=== PATIENT | female | born 1945 | race Caucasian/White ===

== ENCOUNTER 2019-11-09 09:06 | Inpatient (IN) ==
[2019-11-09] MEDS ORDERED: ONDANSETRON 4 MG/2 ML VIAL IV STA (09:22)
[2019-11-09] MEDS ORDERED: METOCLOPRAMIDE 10 MG/2 ML VIAL IV STA (09:22)
[2019-11-09] MEDS ORDERED: DICYCLOMINE 20 MG/2 ML AMP IM ONE (09:22)
[2019-11-09] MEDS ORDERED: SODIUM CHLORIDE 0.9% 1,000 ML IV STA (09:22)
[2019-11-09] MEDS ORDERED: metroNIDAZOLE INJ 500 MG in PREMIX 1 EACH IV STA (09:22)
[2019-11-09] MEDS ORDERED: PANTOPRAZOLE 40 MG VIAL IV STA (09:22)
[2019-11-09 09:47] LABS: Basophils % 0.5 % (0.0-0.8); Eosinophils # 0.1 10*3/uL (0.0-0.87); Eosinophils % 0.7 % (0.00-10.9); Hematocrit 48.4 VOL% (35.7-47.0); Hemoglobin 15.5 GM/DL (12.0-16.0); Immature Granulocytes % 0.3 %; Immature Granulocytes Absolute 0.03 #; Lymphocytes # 1.7 10*3/uL (1.4-4.0); Lymphocytes % 19.3 % (21.3-54.2); Monocytes % 4.2 % (1.7-12.7); Platelet Count 173 T/CUMM (130-400); Red Blood Count 5.26 MC/CUMM (3.8-5.5); Red Cell Distribution Width 12.9 % (9.3-17.3); White Blood Count 8.8 T/CUMM (4-12)
[2019-11-09 10:23] LABS: Alanine Aminotransferase 34 U/L (13-56); Albumin 4.3 G/DL (3.4-5.0); Alkaline Phosphatase 122 U/L (45-117); Amylase 39 U/L (25-115); Aspartate Amino Transferase 16 U/L (0-37); Blood Urea Nitrogen 8 MG/DL (7-18); Calcium 9.1 MG/DL (8.5-10.1); Estimated Glom Filtration Rate 60 ML/MIN; Glucose 281 MG/DL (74-106); Total Protein 7.9 G/DL (6.4-8.3); Troponin I < 0.015 NG/ML (0.00-0.045)
[2019-11-09 10:55] LABS: Apearance,Urine Slightly Hazy (Clear); Bacteria,Urine Many /HPF (Few); Bilirubin,Urine Negative (Negative); Blood, Urine Moderate mg/dL (Negative); Glucose,Urine (UA) >=500 mg/dL (Negative); Hyaline Casts,Urine 4 /LPF (0-3); Ketones,Urine Negative (Negative); Mucus,Urine Occasional /LPF (Occasional); Nitrite,Urine Negative (Negative); Protein,Urine Negative; RBC,Urine 8 /HPF (0-4); Squamous Epithelial Cell,Urine Occasional /HPF (0-10); Urine Color Yellow (Yellow); Urine Urobilinogen < 2.0 EU/DL (0.2-1.0); WBC,Urine 19 /HPF (0-6)
[2019-11-09] MEDS ORDERED: LEVOFLOXACIN INJ 750 MG in PREMIX 1 EACH IV STA (11:18)
[2019-11-09] MEDS ORDERED: ALBUTEROL 2.5 MG/3 ML NEB RESP TX PRN (12:19)
[2019-11-09] MEDS ORDERED: DEXTROSE 10% 250 ML BAG IV PRN (12:21)
[2019-11-09] MEDS ORDERED: DOCUSATE SODIUM 100 MG CAPSULE PO PRN (12:21)
[2019-11-09] MEDS ORDERED: GLUCAGON 1 MG VIAL IM PRN (12:21)
[2019-11-09] MEDS: PANTOPRAZOLE 40 MG TABLET PO SCH (14:36)
[2019-11-09] MEDS: ONDANSETRON 4 MG/2 ML VIAL IV PRN (14:36)
[2019-11-09] MEDS: INSULIN REGULAR 100 UNIT/ML SUBCUT SCH ×2 (17:09→20:56)
[2019-11-09] MEDS: metroNIDAZOLE INJ 500 MG in PREMIX 1 EACH IV SCH (17:41)
[2019-11-09] MEDS: SIMVASTATIN 40 MG TABLET PO SCH (20:54)
[2019-11-09] MEDS: ZALEPLON 5 MG CAPSULE PO PRN (20:54)
[2019-11-09] MEDS: METOPROLOL SUCCINATE XL 50 MG TABLET PO SCH (20:54)
[2019-11-09] MEDS: DICYCLOMINE 10 MG CAPSULE PO SCH (21:00)
[2019-11-10] MEDS: metroNIDAZOLE INJ 500 MG in PREMIX 1 EACH IV SCH ×3 (01:03→16:41)
[2019-11-10] MEDS: ONDANSETRON 4 MG/2 ML VIAL IV PRN (01:08)
[2019-11-10 04:50] LABS: Basophils # 0.1 10*3/uL (0.0-0.2); Basophils % 0.5 % (0.0-0.8); Eosinophils # 0.1 10*3/uL (0.0-0.87); Eosinophils % 1.3 % (0.00-10.9); Hematocrit 40.1 VOL% (35.7-47.0); Hemoglobin 13.1 GM/DL (12.0-16.0); Immature Granulocytes % 0.4 %; Immature Granulocytes Absolute 0.04 #; Lymphocytes # 3.1 10*3/uL (1.4-4.0); Lymphocytes % 30.2 % (21.3-54.2); Mean Corpuscular HGB Conc 32.7 GM/DL (32-36); Mean Corpuscular Volume 91.1 FL (87-102); Mean Platelet Volume 11.6 FL (9.6-12.0); Monocytes % 6.3 % (1.7-12.7); Neutrophils % 61.3 % (38.7-73.9); Platelet Count 151 T/CUMM (130-400); Red Cell Distribution Width 12.9 % (9.3-17.3); White Blood Count 10.2 T/CUMM (4-12)
[2019-11-10 05:13] LABS: Calcium 8.7 MG/DL (8.5-10.1); Osmolality,Calculated 274.7 MOS/KG (273-304); Risk Ratio 4.41
[2019-11-10] MEDS: INSULIN REGULAR 100 UNIT/ML SUBCUT SCH ×4 (08:57→20:00)
[2019-11-10] MEDS: DICYCLOMINE 10 MG CAPSULE PO SCH ×2 (08:58→20:55)
[2019-11-10] MEDS: METOPROLOL SUCCINATE XL 50 MG TABLET PO SCH ×2 (08:58→20:55)
[2019-11-10] MEDS: PANTOPRAZOLE 40 MG TABLET PO SCH (08:58)
[2019-11-10] MEDS: LEVOFLOXACIN INJ 750 MG in PREMIX 1 EACH IV SCH (10:13)
[2019-11-10] MEDS ORDERED: NICOTINE 21 MG/24 HR PATCH TRANSDERM PRN (14:56)
[2019-11-10] MEDS: SIMVASTATIN 40 MG TABLET PO SCH (20:55)
[2019-11-10] MEDS: ZALEPLON 5 MG CAPSULE PO PRN (23:04)
[2019-11-11] MEDS: metroNIDAZOLE INJ 500 MG in PREMIX 1 EACH IV SCH ×3 (01:07→16:55)
[2019-11-11 05:02] LABS: Basophils % 0.4 % (0.0-0.8); Eosinophils # 0.2 10*3/uL (0.0-0.87); Eosinophils % 2.3 % (0.00-10.9); Hematocrit 38.7 VOL% (35.7-47.0); Hemoglobin 12.6 GM/DL (12.0-16.0); Immature Granulocytes % 0.4 %; Immature Granulocytes Absolute 0.03 #; Lymphocytes # 3.1 10*3/uL (1.4-4.0); Lymphocytes % 39.3 % (21.3-54.2); Mean Corpuscular HGB Conc 32.6 GM/DL (32-36); Mean Corpuscular Volume 91.5 FL (87-102); Mean Platelet Volume 11.1 FL (9.6-12.0); Neutrophils % 50.6 % (38.7-73.9); Platelet Count 146 T/CUMM (130-400); Red Blood Count 4.23 MC/CUMM (3.8-5.5); Red Cell Distribution Width 12.9 % (9.3-17.3); White Blood Count 7.9 T/CUMM (4-12)
[2019-11-11 05:17] LABS: Calcium 8.8 MG/DL (8.5-10.1); Osmolality,Calculated 279.3 MOS/KG (273-304)
[2019-11-11] MEDS: INSULIN REGULAR 100 UNIT/ML SUBCUT SCH ×4 (08:09→21:24)
[2019-11-11] MEDS: DICYCLOMINE 10 MG CAPSULE PO SCH ×2 (09:49→21:25)
[2019-11-11] MEDS: PANTOPRAZOLE 40 MG TABLET PO SCH (09:49)
[2019-11-11] MEDS: METOPROLOL SUCCINATE XL 50 MG TABLET PO SCH ×2 (09:49→21:31)
[2019-11-11] MEDS: LEVOFLOXACIN INJ 750 MG in PREMIX 1 EACH IV SCH (10:57)
[2019-11-11] MEDS ORDERED: MAGNESIUM CITRATE 300 ML BOTTLE PO ONE (16:00)
[2019-11-11] MEDS: SIMVASTATIN 40 MG TABLET PO SCH (21:25)
[2019-11-12] MEDS: metroNIDAZOLE INJ 500 MG in PREMIX 1 EACH IV SCH (01:07)
[2019-11-12 05:40] LABS: Basophils % 0.6 % (0.0-0.8); Eosinophils # 0.2 10*3/uL (0.0-0.87); Eosinophils % 2.6 % (0.00-10.9); Hematocrit 40.1 VOL% (35.7-47.0); Hemoglobin 12.5 GM/DL (12.0-16.0); Immature Granulocytes % 0.3 %; Immature Granulocytes Absolute 0.02 #; Lymphocytes # 2.6 10*3/uL (1.4-4.0); Lymphocytes % 39.3 % (21.3-54.2); Mean Corpuscular HGB Conc 31.2 GM/DL (32-36); Mean Corpuscular Volume 94.4 FL (87-102); Mean Platelet Volume 11.5 FL (9.6-12.0); Neutrophils % 48.2 % (38.7-73.9); Platelet Count 152 T/CUMM (130-400); Red Blood Count 4.25 MC/CUMM (3.8-5.5); Red Cell Distribution Width 12.8 % (9.3-17.3); White Blood Count 6.6 T/CUMM (4-12)
[2019-11-12 05:46] LABS: Calcium 8.7 MG/DL (8.5-10.1); Osmolality,Calculated 281.4 MOS/KG (273-304)
[2019-11-12] MEDS: ONDANSETRON 4 MG/2 ML VIAL IV PRN ×2 (06:19→23:35)
[2019-11-12] MEDS: INSULIN REGULAR 100 UNIT/ML SUBCUT SCH ×4 (07:19→21:00)
[2019-11-12] MEDS ORDERED: propofoL 200 MG/20 ML VIAL IV ONE (09:00)
[2019-11-12] MEDS ORDERED: LIDOCAINE 2% 5 ML VIAL ONE (09:00)
[2019-11-12] MEDS ORDERED: BISACODYL 5 MG TABLET PO ONE (12:00)
[2019-11-12] MEDS: DICYCLOMINE 10 MG CAPSULE PO SCH ×2 (12:37→21:56)
[2019-11-12] MEDS: METOPROLOL SUCCINATE XL 50 MG TABLET PO SCH ×2 (12:38→21:55)
[2019-11-12] MEDS: PANTOPRAZOLE 40 MG TABLET PO SCH (12:48)
[2019-11-12] MEDS: LEVOFLOXACIN INJ 750 MG in PREMIX 1 EACH IV SCH ×2 (14:18→22:53)
[2019-11-12] MEDS ORDERED: POLYETHYLENE GLYCOL POWDER 255 GM BOTTLE PO ONE (18:00)
[2019-11-12] MEDS ORDERED: MAGNESIUM CITRATE 300 ML BOTTLE PO ONE (21:00)
[2019-11-12] MEDS: SIMVASTATIN 40 MG TABLET PO SCH (21:56)
[2019-11-13] MEDS: metroNIDAZOLE INJ 500 MG in PREMIX 1 EACH IV SCH ×4 (00:49→23:32)
[2019-11-13 05:54] LABS: INR 1.1; PT Patient Result 11.4 SECS (9.6-12.2)
[2019-11-13 08:23] LABS: Basophils % 0.3 % (0.0-0.8); Eosinophils # 0.2 10*3/uL (0.0-0.87); Hematocrit 38.9 VOL% (35.7-47.0); Hemoglobin 12.8 GM/DL (12.0-16.0); Immature Granulocytes % 0.3 %; Immature Granulocytes Absolute 0.02 #; Lymphocytes % 32.2 % (21.3-54.2); Mean Corpuscular HGB Conc 32.9 GM/DL (32-36); Mean Corpuscular Volume 90.5 FL (87-102); Monocytes % 6.6 % (1.7-12.7); Neutrophils % 57.6 % (38.7-73.9); Platelet Count 140 T/CUMM (130-400); Red Cell Distribution Width 12.8 % (9.3-17.3); White Blood Count 6.1 T/CUMM (4-12)
[2019-11-13 08:36] LABS: Alanine Aminotransferase 38 U/L (13-56); Albumin 3.5 G/DL (3.4-5.0); Alkaline Phosphatase 81 U/L (45-117); Aspartate Amino Transferase 30 U/L (0-37); Bilirubin,Total < 0.39 MG/DL (0.2-1.0); Blood Urea Nitrogen 6 MG/DL (7-18); Calcium 8.5 MG/DL (8.5-10.1); Estimated Glom Filtration Rate 68 ML/MIN; Glucose 140 MG/DL (74-106); Osmolality,Calculated 280.3 MOS/KG (273-304); Total Protein 6.4 G/DL (6.4-8.3)
[2019-11-13] MEDS: METOPROLOL SUCCINATE XL 50 MG TABLET PO SCH ×2 (08:41→21:02)
[2019-11-13] MEDS: DICYCLOMINE 10 MG CAPSULE PO SCH ×2 (08:41→21:01)
[2019-11-13] MEDS: PANTOPRAZOLE 40 MG TABLET PO SCH (08:41)
[2019-11-13] MEDS: INSULIN REGULAR 100 UNIT/ML SUBCUT SCH ×4 (08:42→21:01)
[2019-11-13] MEDS: LACTATED RINGERS 1,000 ML IV SCH ×3 (08:47→10:47)
[2019-11-13] MEDS ORDERED: propofoL 200 MG/20 ML VIAL IV ONE (09:00)
[2019-11-13] MEDS ORDERED: LIDOCAINE 2% 5 ML VIAL ONE (09:00)
[2019-11-13] MEDS: ZALEPLON 5 MG CAPSULE PO PRN (21:02)
[2019-11-13] MEDS: SIMVASTATIN 40 MG TABLET PO SCH (21:02)
[2019-11-13] MEDS: LEVOFLOXACIN INJ 750 MG in PREMIX 1 EACH IV SCH (21:50)
[2019-11-14 07:27] LABS: Basophils % 0.5 % (0.0-0.8); Eosinophils # 0.2 10*3/uL (0.0-0.87); Hematocrit 40.8 VOL% (35.7-47.0); Hemoglobin 13.2 GM/DL (12.0-16.0); Immature Granulocytes % 0.5 %; Immature Granulocytes Absolute 0.03 #; Lymphocytes # 2.2 10*3/uL (1.4-4.0); Lymphocytes % 33.7 % (21.3-54.2); Mean Corpuscular HGB Conc 32.4 GM/DL (32-36); Mean Corpuscular Volume 90.5 FL (87-102); Mean Platelet Volume 11.3 FL (9.6-12.0); Monocytes % 7.4 % (1.7-12.7); Neutrophils % 54.9 % (38.7-73.9); Platelet Count 156 T/CUMM (130-400); Red Blood Count 4.51 MC/CUMM (3.8-5.5); Red Cell Distribution Width 12.7 % (9.3-17.3); White Blood Count 6.6 T/CUMM (4-12)
[2019-11-14 07:53] VITALS: BP 116/71
[2019-11-14] MEDS: PANTOPRAZOLE 40 MG TABLET PO SCH (08:42)
[2019-11-14] MEDS: metroNIDAZOLE INJ 500 MG in PREMIX 1 EACH IV SCH (08:42)
[2019-11-14] MEDS: METOPROLOL SUCCINATE XL 50 MG TABLET PO SCH (08:42)
[2019-11-14] MEDS: DICYCLOMINE 10 MG CAPSULE PO SCH (08:42)
[2019-11-14] MEDS: INSULIN REGULAR 100 UNIT/ML SUBCUT SCH (09:53)
[2019-11-14] MEDS: LACTATED RINGERS 1,000 ML IV SCH ×2 (10:25)
== END 2019-11-14 11:17 | disposition home or self-care (01) | DRG 378 ==
LOC: N.ED 09:06 → N.EDINP 12:21 → SUATTDRO 12:21 → N.3E 13:46
PROVIDERS: ADMIT Family Medicine; ATTEND Internal Medicine